=== PATIENT | male | born 1980 | race Caucasian/White ===

== ENCOUNTER 2016-10-09 11:24 | Emergency (ER) | payer OTHER ==
[2016-10-09 11:50] LABS: Hematocrit 42.6 % (42.0-52.0); Hemoglobin 14.9 gm/dL (13.5-18.0); Mean Cell Volume 85.7 fl (78-100); Neutrophil # 6.9 K/mm3 (1.3-6.0); Neutrophil % 63.2 % (42-75.0); Platelet Count 228 K/mm3 (150-450); Red Blood Count 4.97 M/mm3 (4.7-6.0); Red Cell Distribution Width 12.3 % (11.5-14.0); White Blood Count 10.9 K/mm3 (4.0-10.5)
[2016-10-09 12:11] LABS: Prothrombin Time (Patient) 9.8 Seconds (9.4-11.4)
[2016-10-09 12:15] LABS: INR 0.94 INR (0.90-1.10); Partial Thrombolplastin Time 25.5 Seconds (24-32)
[2016-10-09 12:19] LABS: ALT 70 U/L (19-67); AST 28 U/L (0-48); Albumin * 3.7 gm/dl (3.4-5.0); Alkaline Phosphatase * 85 U/L (50-170); Anion Gap 12.6 mmol/L (6.8-13.8); BUN/Creatinine Ratio 13.7 (9.0-21.6); Bilirubin, Total 0.5 mg/dL (0.0-1.1); Blood Urea Nitrogen 14 mg/dL (6-23); Ca. Corrected For Albumin 8.5 mg/dL (8.4-10.2); Calcium * 8.6 mg/dL (7.9-10.9); Carbon Dioxide 28.5 mmol/L (24-32.6); Chloride 105 mmol/L (97-106); Glucose * 95 mg/dL (70-110); Potassium 4.1 mmol/L (3.4-4.6); Sodium 142 mmol/L (132-142); Total Protein 7.2 gm/dL (6.2-8.2); Troponin I Less than 0.017 ng/ml (0.00-0.10)
--- NOTE | 2016-10-09 12:52 | ERNOTE ---
Chest Pain/Cardiac HPI Date of Service: 10/09/16 Chief Complaint: Chest Pain Time Seen by Provider: 10/09/16 12:36 Source: patient, RN notes reviewed Exam Limitations: no limitations Immunizations: IMMUNIZATION HX Immunizations Up to Date Yes History of Influenza Vaccine No Allergies/Adverse Reactions: Allergies No Known Allergies Allergy (Verified 10/09/16 11:38) Home Medications: HOME MEDICATIONS NK [No Home Medication] 10/09/16 [Last Taken Unknown] Narrative: presented to ED with right sided chest pain. Date (Duration): 10/09/16 Timing: intermittent Severity/Quality: dull Location: other - right axilla area Chest Pain Radiation: no radiation Activities at Onset: none Review of Systems - Review of Systems Constitutional: Present: no symptoms reported EYE: Present: no symptoms reported ENT: Present: no symptoms reported Respiratory: Present: cough, other - patient states he has an occasional cough Cardiology: Present: chest pain - right axilla intermittent chest pain. Gastrointestinal/Abdominal: Present: no symptoms reported Genitourinary: Present: no symptoms reported Musculoskeletal: Present: no symptoms reported Skin: Present: no symptoms reported Neurological: Present: no symptoms reported Endocrine: Present: no symptoms reported Hematologic/Lymphatic: Present: no symptoms reported Psych: Present: no symptoms reported - Patient's Past Medical History Patient History - Medical: No pertinent hx Patient History - Cardiac/Respiratory: No pertinent hx Patient History - Cancer: No Hx of Cancer Patient History - Surgical Procedures: Noncontributory - Social History Living Situations: home Psych History: No pertinent hx Smoking Status: Never smoker Do you dip or chew tobacco: No Alcohol Use: none Drug Use: none - Immunizations Immunizations Up to Date: Yes History of Influenza Vaccine: No Physical Exam - Physical Exam General Appearance: Present: wd/wn Eye Exam: Normal inspection: bilateral Ears, Nose, Throat: Present: normal ENT inspection Neck: Present: normal inspection Respiratory: Present: no respiratory distress Cardiovascular/Chest: Present: regular rate, rhythm Peripheral Pulses: N=norm/S=strong/W=weak/B=bound/A=absent: Radial (R): Normal, Radial (L): Normal, Dorsalis-pedis (R): Normal, Dorsalis-pedis (L): Normal Gastrointestinal/Abdominal: Present: normal bowel sounds Back Exam: Present: normal inspection Extremity Exam: Present: normal range of motion, other - During right arm ROM i was able to reproduce pain to right axilla. Pain is reproduced when he puts his right arm behind his head. Neurological Exam: Present: alert Skin Exam: Present: normal color Lymphatic Exam: Present: no adenopathy ED Progress - Results and Orders Patient's Lab Results:: I have reviewed the patient's lab results. - Vital Signs Patient's Vital Signs:: I have reviewed the patient's vital signs. Vital Signs: Vital Signs 10/09/16 10/09/16 11:31 11:43 Temperature 36.6 C Pulse Rate 83 83 Respiratory 16 Rate Blood Pressure 153/81 O2 Sat by Pulse 95 Oximetry - EKG EKG: NSR EKG read: Reviewed by me - X-Ray X-Ray #1 X-Ray: chest Interpretation: Reviewed by me X-ray Comments: Findings: Heart size and vascularity appear within normal limits. Lung dasilva show no focal infiltrates or effusions. There is no pneumothorax. There is overall somewhat low lung volumes unchanged. IMPRESSION: STABLE CHEST. NO ACUTE CARDIOPULMONARY DISEASE IDENTIFIED. Electronically signed by Magdy العراقي M.D.. - Progress/Reassessment Chief Complaint: Chest Pain Progress:: Pain free at discharge Plan - Plan Plan: Patient instructed to take Motrin or Tylenol for chest wall pain. Follow up with new or worsening symptoms. Departure - Departure Clinical Impression: Chest wall discomfort Disposition: Home self-care Condition: Stable Instructions: Chest Wall Pain, [id number] Additional Instructions: Take Motrin or Tylenol for discomfort. Return if symptoms or condition worsens. Referrals: Norman Clark DO [Primary Care Provider] -
[2016-10-09 13:17] VITALS: BP 125/77
== END 2016-10-09 13:13 | disposition home or self-care (01) ==
LOC: ER 11:24
DX: R07.89 Other chest pain (principal)